=== PATIENT | female | born 1995 | race Caucasian/White ===

== ENCOUNTER 2018-01-07 15:44 | Emergency (ER) | payer OTHER ==
[2018-01-07 16:05] VITALS: TEMP 99; BMI 21.9
[2018-01-07] MEDS ORDERED: ACETAMINOPHEN 1000 MG/100 ML VIAL (NON FORMULARY) IVPB ONE (16:34)
[2018-01-07] MEDS ORDERED: ONDANSETRON 4 MG/2 ML VIAL IVPUSH ONE (16:34)
[2018-01-07] MEDS ORDERED: SODIUM CHLORIDE 0.9% 500 ML INFUS.BAG IV ONE (16:34)
[2018-01-07] MEDS ORDERED: ACETAMINOPHEN INJECTION 100 ML IVPB ONE (16:41)
[2018-01-07] MEDS ORDERED: ONDANSETRON 4 MG/2 ML VIAL ONE (16:42)
--- NOTE | 2018-01-07 16:55 | PDOC ---
History of Present Illness - History of Present Illness Initial Comments: The patient is a 22F with a history of Delma's s/p thyroidectomy, dysmenorrhea, and POD 13 from tonsillectomy presents with suprapubic/RLQ cramping abdominal pain that radiates 'all over' her abdomen and is associated w / N/V since 1300. The patient denies associated diarrhea, dysuria, hematuria, or blood in her stool. She endorses chest burning and buring pain, that is worse with deep breaths, that she states is making her feel short of breath. She denies fevers, sick contacts, or history of previous abdominal surgery. The patient reports that this occurs approximately every other month and is associated with her menses. She states that she is seen in the Emergency Department each time this occurs for pain and nausea control. She reports starting her menses yesterday, 01/06/2018 The patient states that she has not been told what causes the pain. 01/07/18 16:50 <Bradley Santos - Last Filed: 01/07/18 19:53> <Demarco Quan - Last Filed: 01/08/18 00:51> - General Chief Complaint: Nausea/Vomiting Stated Complaint: VOMITING Past History - Past Medical History Anemia: No Asthma: No Cancer: No COPD: No Thyroid Disease: Yes - Surgical History Cholecystectomy: No Gastric Stapling: No GI Surgery: No - Reproductive History Cervical CA: No Dysfunctional Uterine Bleeding: No Ectopic : No Endometrial CA: No Polycystic Ovaries: No Tubal Ligation: No - Immunization History Immunization Up to Date: Yes - Suicide/Smoking/Psychosocial Hx Smoking Status: No Smoking History: Never smoked Have you smoked in the past 12 months: No Number of Cigarettes Smoked Daily: 0 Information on smoking cessation initiated: No Hx Alcohol Use: No Drug/Substance Use Hx: No Substance Use Type: None <Bradley Santos - Last Filed: 01/07/18 19:53> <Demarco Quan - Last Filed: 01/08/18 00:51> - Past Medical History Allergies/Adverse Reactions: Allergies Allergy/AdvReac Type Severity Reaction Status Date / Time No Known Allergies Allergy Verified 01/08/13 22:41 Home Medications: Ambulatory Orders No Home Medications 0 dose .ROUTE UTDICT 01/08/13 Ondansetron [Zofran Odt -] 4 mg SL TID #21 od.tablet 01/08/18 Review of Systems - Review of Systems Able to Perform ROS?: Yes Comments:: GENERAL/CONSTITUTIONAL: +chills. No fever. No weakness HEAD, EYES, EARS, NOSE AND THROAT: No change in vision. No ear pain or discharge CARDIOVASCULAR: No chest pressure or dyspnea or MITCHELL RESPIRATORY: No cough, wheezing, or hemoptysis GASTROINTESTINAL: per HPI GENITOURINARY: No dysuria, frequency, or change in urination MUSCULOSKELETAL: No joint or muscle swelling or pain. No neck or back pain SKIN: No rash NEUROLOGIC: No loss of consciousness, or change in strength/sensation ENDOCRINE: No increased thirst. No abnormal weight change HEMATOLOGIC/LYMPHATIC: No anemia, easy bleeding, or history of blood clots ALLERGIC/IMMUNOLOGIC: No hives or skin allergy 01/07/18 19:41 Is the patient limited Croatian proficient: No <Bradley Santos - Last Filed: 01/07/18 19:53> *Physical Exam - Vital Signs Last Vital Signs Temp Pulse Resp BP Pulse Ox 99 F 102 H 20 117/85 100 01/07/18 16:03 01/07/18 16:03 01/07/18 16:03 01/07/18 16:03 01/07/18 16:26 - Physical Exam Comments: GENERAL: Awake, alert, and fully oriented, in mild distress HEAD: No signs of trauma, normocephalic, atraumatic EYES: PERRL, EOMI, sclera anicteric, conjunctiva clear ENT: Hearing grossly normal, nares patent, oropharynx clear without exudates. Moist mucosa NECK: Normal ROM, supple, no lymphadenopathy LUNGS: No distress, speaks full sentences, clear to auscultation bilaterally HEART:Regular rate and rhythm, normal S1 and S2, no murmurs appreciated, peripheral pulses normal and equal bilaterally ABDOMEN: Soft, diffuse abdominal TTP that is worse in the suprapubic and LLQ, normoactive bowel sounds. No guarding, no rebound. EXTREMITIES : Normal inspection, Normal range of motion, no edema. No clubbing or cyanosis NEUROLOGICAL: Cranial nerves II through XII grossly intact. Normal speech, no focal sensorimotor deficits SKIN: Warm, Dry, normal turgor, no rashes or lesions noted 01/07/18 19:42 <Bradley Santos - Last Filed: 01/07/18 19:53> - Vital Signs Last Vital Signs Temp Pulse Resp BP Pulse Ox 99 F 102 H 20 117/85 100 01/07/18 16:03 01/07/18 16:03 01/07/18 16:03 01/07/18 16:03 01/07/18 16:26 <Demarco Quan - Last Filed: 01/08/18 00:51> ED Treatment Course - Medications Given in the ED: ED Medications Discontinued Medications Generic Name Dose Route Start Last Admin Trade Name Freq PRN Reason Stop Dose Admin Sodium Chloride 1,000 ml 01/07/18 16:34 01/07/18 16:39 Normal Saline - IV 01/07/18 16:35 1,000 ml ONCE ONE Administration <Bradley Santos - Last Filed: 01/07/18 19:53> - LABORATORY CBC & Chemistry Diagram: 01/07/18 20:19 01/07/18 20:19 - ADDITIONAL ORDERS Additional order review: Laboratory Results 01/07/18 01/07/18 01/07/18 23:40 22:40 20:19 Sodium 145 Potassium 3.5 Chloride 116 H Carbon Dioxide 19 L Anion Gap 10 BUN 9 Creatinine 0.4 L Creat Clearance w eGFR > 60 Random Glucose 92 Calcium 8.0 L Total Bilirubin 0.4 AST 15 ALT 20 Alkaline Phosphatase 57 Total Protein 6.6 Albumin 3.3 L Lipase 83 Urine Color Blue Urine Appearance Cloudy Urine pH 8.0 Ur Specific Herrick 1.013 Urine Protein Negative Urine Glucose (UA) Negative Urine Ketones Trace H Urine Blood 2+ H Urine Nitrite Negative Urine Bilirubin Negative Urine Urobilinogen Negative Ur Leukocyte Esterase Negative Urine WBC (Auto) 2 Urine RBC (Auto) 6 Ur Epithelial Cells Rare Urine Mucus Rare Urine HCG, Qual Negative 01/07/18 20:19 RBC 3.73 MCV 90.9 MCHC 34.9 RDW 12.9 MPV 9.2 - Medications Given in the ED: ED Medications Discontinued Medications Generic Name Dose Route Start Last Admin Trade Name Freq PRN Reason Stop Dose Admin Acetaminophen 1,000 mg 01/07/18 16:34 01/07/18 16:56 Ofirmev Injection - IVPB 01/07/18 16:35 1,000 mg ONCE ONE Administration Al Hydroxide/Mg Hydroxide 30 ml 01/07/18 19:52 01/07/18 20:11 Mylanta Oral Suspension - PO 01/07/18 19:53 30 ml ONCE ONE Administration Famotidine/Sodium Chloride 20 mg in 50 mls @ 100 mls/hr 01/07/18 19:52 20:11 Pepcid 20 Mg Premixed Ivpb - IVPB 01/07/18 20:21 100 mls/hr ONCE ONE Administration Ketorolac Tromethamine 30 mg 01/07/18 17:14 01/07/18 18:35 Toradol Injection - IVPUSH 01/07/18 17:15 30 mg ONCE ONE Administration Ondansetron HCl 4 mg 01/07/18 16:34 01/07/18 16:57 Zofran Injection IVPUSH 01/07/18 16:35 4 mg ONCE ONE Administration Sodium Chloride 1,000 ml 01/07/18 16:34 01/07/18 16:39 Normal Saline - IV 01/07/18 16:35 1,000 ml ONCE ONE Administration <Demarco Quan - Last Filed: 01/08/18 00:51> Medical Decision Making - Medical Decision Making The patient is a 22F with a history of Delma's s/p thyroidectomy, dysmenorrhea, and POD 13 from tonsillectomy presents with suprapubic/RLQ cramping abdominal pain that radiates 'all over' her abdomen and is associated w / N/V since 1300. Ddx: dysmenorrhea, PCOS, ovarian cyst, UTI/pyelo, appendicitis, pancreatitis ED Course CMP, CBC, UA Ofirmev, Toradol for pain 1L NS UA not concerning for UTI 1L NS Maalox 30mg PO once Pepcid IV once Pending labs Plan for DC home with pain control and OB f/u if labs wnl 01/07/18 19:50 <Bradley Santos - Last Filed: 01/07/18 19:53> *DC/Admit/Observation/Transfer - Discharge Dispostion Decision to Admit order: No <Bradley Santos - Last Filed: 01/07/18 19:53> <Demarco Quan - Last Filed: 01/08/18 00:51> Diagnosis at time of Disposition: Abdominal pain Qualifiers: Abdominal location: unspecified location Qualified Code(s): R10.9 - Unspecified abdominal pain Nausea and vomiting Qualifiers: Vomiting type: unspecified Vomiting Intractability: non-intractable Qualified Code(s): R11.2 - Nausea with vomiting, unspecified - Discharge Dispostion Disposition: HOME Condition at time of disposition: Stable - Referrals Referrals: Keisha Nunez MD [Staff Physician] - - Patient Instructions Printed Discharge Instructions: DI for Dysmenorrhea, DI for Vomiting -- Adult, DI for Nausea -- Adult, DI for Abdominal Pain-Adult
[2018-01-07] MEDS ORDERED: KETOROLAC TROMETHAMINE 30 MG/1 ML VIAL IVPUSH ONE (17:14)
--- NOTE | 2018-01-07 17:25 | PDOC ---
Attending Attestation - Resident Resident Name: Bradley Santos - ED Attending Attestation I have performed the following: I have examined & evaluated the patient, The case was reviewed & discussed with the resident, I agree w/resident's findings & plan, Exceptions are as noted - HPI HPI: 01/07/18 22:48 22-year-old female with history of hypothyroidism, dysmenorrhea and 13 days post tonsillectomy presents with suprapubic abdominal pain, associated with nausea and numerous episodes of nonbloody, nonbilious vomiting at the onset of her regularly scheduled menstrual period. Patient reports that her symptoms are similar to previous episodes of dysmenorrhea. Patient also reports that she developed substernal chest burning after numerous episodes of vomiting. - Physicial Exam PE: 01/07/18 18:47 On initial evaluation, patient is diaphoretic, tremulous and in moderate distress. Normocephalic, atraumatic PERRLA, EOMI, no scleral icterus Neck is supple; voice is muffled; oropharynx is erythematous CTA RRR Abdomen is soft, nondistended, minimal suprapubic discomfort is appreciated, there is no guarding rebound; no CVA to his bilaterally - Medical Decision Making 01/07/18 22:51 Patient is a 22-year-old female with history of dysmenorrhea who presents with suprapubic abdominal pain and multiple episodes of nausea and vomiting. Will hydrate, we'll administer antiemetics and NSAIDs. Perform serial exams. Substernal chest burning is likely related to a reflux esophagitis and unlikely related to PE or ACS. Will reassess. 01/08/18 00:46 Patient is resting comfortably, symptom-free, abdominal exam reveals no focal tenderness to palpation. Patient tolerates by mouth. UCG is negative. Will discharge.
[2018-01-07] MEDS ORDERED: KETOROLAC TROMETHAMINE 30 MG/1 ML VIAL ONE (18:19)
[2018-01-07] MEDS ORDERED: MAG HYDROX/AL HYDROX/SIMETH 30 ML UNIT-DOSE CUP PO ONE (19:52)
[2018-01-07] MEDS ORDERED: FAMOTIDINE 20 MG/50 ML IVPB 20 MG/50 ML MG IVPB ONE ×2 (19:52→20:07)
[2018-01-07] MEDS ORDERED: MAG HYDROX/AL HYDROX/SIMETH 30 ML UNIT-DOSE CUP ONE (20:07)
[2018-01-07 20:28] LABS: HEMATOCRIT 33.9 % (32.4-45.2); HEMOGLOBIN 11.8 GM/dL (10.7-15.3); MCH 31.7 pg (25.7-33.7); MCHC 34.9 g/dl (32.0-36.0); MEAN CELL VOLUME 90.9 fl (80-96); MEAN PLT VOLUME 9.2 fl (7.5-11.1); PLATELET COUNT 248 K/MM3 (134-434); RBC 3.73 M/mm3 (3.60-5.2); RDW 12.9 % (11.6-15.6); WHITE BLOOD COUNT 8.3 K/mm3 (4.0-10.0)
[2018-01-07 20:50] LABS: ALBUMIN 3.3 g/dl (3.4-5.0); ALK PHOS 57 U/L (45-117); ANION GAP 10 MMOL/L (8-16); BILIRUBIN,TOTAL 0.4 mg/dL (0.2-1); BLOOD UREA NITROGEN 9 mg/dL (7-18); CHLORIDE 116 mmol/L (98-107); CO2 19 mmol/L (21-32); CREATININE 0.4 mg/dL (0.55-1.3); GLUCOSE,RANDOM 92 mg/dL (74-106); LIPASE 83 U/L (73-393); POTASSIUM 3.5 mmol/L (3.5-5.1); SGOT/AST 15 U/L (15-37); SGPT/ALT 20 U/L (13-61); SODIUM 145 mmol/L (136-145); TOT PROT 6.6 g/dl (6.4-8.2)
[2018-01-07 22:52] LABS: URINE APPEARANCE CLOUDY; URINE BILIRUBIN NEGATIVE (<2.0 mg/dL); URINE COLOR BLUE; URINE GLUCOSE (UA) NEGATIVE (NEGATIVE); URINE KETONE TRACE (NEGATIVE); URINE LEUK ESTERASE NEGATIVE (NEGATIVE); URINE NITRITE NEGATIVE (NEGATIVE); URINE PROTEIN NEGATIVE (NEGATIVE); URINE UROBILINOGEN NEGATIVE mg/dL (0.2-1.0)
[2018-01-07 23:23] LABS: EPI CELLS RARE /HPF (FEW); URINE MUCUS RARE
[2018-01-08 01:04] VITALS: BP 118/68; PULSE 88
== END 2018-01-08 01:04 | disposition home or self-care (01) ==
LOC: JER 15:44
PROC: 3E033NZ Introduction of Analgesics, Hypnotics, Sedatives into Peripheral Vein, Percutaneous Approach (ICD-10-PCS; principal; 2018-01-07)
PROC: 3E033GC Introduction of Other Therapeutic Substance into Peripheral Vein, Percutaneous Approach (ICD-10-PCS; 2018-01-07)
PROC: 3E0333Z Introduction of Anti-inflammatory into Peripheral Vein, Percutaneous Approach (ICD-10-PCS; 2018-01-07)
PROC: 3E0337Z Introduction of Electrolytic and Water Balance Substance into Peripheral Vein, Percutaneous Approach (ICD-10-PCS; 2018-01-07)
DX: R11.2 Nausea with vomiting, unspecified (principal); R10.9 Unspecified abdominal pain
CPT/HCPCS: 36415; 80053; 81003; 81015; 83690; 84703; 85027; 87086; 99282-25; J0131